=== PATIENT | female | born 2000 | race Caucasian/White ===

== ENCOUNTER 2020-09-10 13:29 | Outpatient (CLI) | payer BC, SELFPAY ==
--- NOTE | 2020-09-10 13:46 | XR_ITS ---
WS: [id number] RIGHT KNEE: 2 VIEW(S) TECHNIQUE: AP and lateral. HISTORY: PAIN IN RIGHT KNEE COMPARISON: None available. No fracture or dislocation. No joint space narrowing or osteophytes. No joint effusion. No soft tissue abnormality. XR/XR knee RT 1-2V [id number] IMPRESSION: Normal RIGHT knee.
== END 2020-09-10 13:30 | disposition home or self-care (01) ==
LOC: RADWPI 13:34
PROVIDERS: PCP Nurse Practitioner; Visit Provider Nurse Practitioner
DX: M25.561 Pain in right knee (principal)
CPT/HCPCS: 73560

== ENCOUNTER → 2021-05-02 14:33 | Outpatient (BNVA) | payer BC, SELFPAY | PROVIDERS: PCP Nurse Practitioner; Visit Provider Nurse Practitioner Family | DX: Z20.822 Contact with and (suspected) exposure to COVID-19 (principal) | CPT/HCPCS: 87635 ==

== ENCOUNTER 2021-11-06 09:41 | Emergency (ER) | payer OTHER, SELFPAY ==
[2021-11-06 09:59] VITALS: BP 116/77; PULSE 72; RESP 18; TEMP 36.6; O2SAT 98; BMI 25.6
--- NOTE | 2021-11-06 10:20 | ED_ITS ---
HPI - General Adult General: Chief complaint: Needlestick/Injury/Exposure Stated complaint: Needle Stick Time Seen by Provider: 11/06/21 09:55 History of Present Illness: Patient is 21-year-old female comes to the ED with an accidental needlestick injury. Injury occurred while in the OR today. Patient has a surge tach and was holding some forceps for surgeon while suturing up patient. One of the sutures poked patient's right hand. She does not know history of OR patient. Denies any symptoms. Associated symptoms: Deny chest pain, dyspnea, headache(s), nausea, rash, palpitations or vomiting Review of Systems Const: Denies: fever(s), chills or fatigue Eyes: Denies: change in vision or eye discomfort ENMT: Denies: throat pain, odynophagia, nasal discharge or nasal congestion Card: Denies: chest pain, palpitations, edema, swelling of feet/ankles, dyspnea on exertion or orthopnea Resp: Denies: dyspnea, productive cough or non-productive cough GI: Denies: abdominal pain, nausea, vomiting, diarrhea, constipation or hematochezia : Denies: flank pain, dysuria or hematuria Musc: Denies: neck pain, back pain or extremity swelling Skin/Breast: Reports: new lesions (Accidental needlestick injury in right hand); Denies: rash Neuro: Denies: headache(s), numbness in extremities or weakness in extremities PFSH ED PFSH: Medical History ASCUS with positive high risk HPV Family History Family/Other Breast cancer paternal aunt Grandfather Colon cancer paternal Mother Diabetes Hypertension Father Hypertension Denies family history of Clotting disorder Hyperlipidemia Anesthesia complication Bleeding disorder Stroke Social History Smoking and tobacco status: never smoked Alcohol intake: current Alcohol intake frequency: holidays/special occasions only Alcohol type: beer, wine and hard liquor Physical Exam Const: COMMON NORMALS: no acute distress, patient oriented x3, healthy appearing and alert GENERAL APPEARANCE: cooperative and comfortable HENMT: COMMON NORMALS: normocephalic HEAD & SCALP: normocephalic MOUTH: Normal oral and palatal mucosa present THROAT: posterior oropharynx normal an d uvula midline Neck/C-Spine: COMMON NORMALS: supple GENERAL: Yes normal visual inspection Resp: COMMON NORMALS: normal respiratory effort, No retractions, No use of accessory muscles and clear to auscultation bilaterally AUSCULTATION: clear to auscultation bilaterally Cardio: COMMON NORMALS: regular rate, regular rhythm, S1 normal heart sound present, S2 normal heart sound present, No gallops present (Cardio), No clicks present (Cardio), No murmurs present (Cardio) and Peripheral pulses 2+ throughout RATE: regular rate RHYTHM: regular rhythm HEART SOUNDS: S1 normal heart sound present and S2 normal heart sound present PERIPHERAL PULSES: Peripheral pulses 2+ throughout GI: COMMON NORMALS: Normal to inspection, nondistended, normoactive bowel sounds present, Soft to palpation, non-tender and no masses PALPATION: Yes Soft to palpation : COMMON NORMALS: Yes no CVA tenderness BLADDER/KIDNEY EXAM: Yes no CVA tenderness Back/Pelvis: COMMON NORMALS: no CVA tenderness Neuro: COMMON NORMALS: patient oriented x3 and moves all extremities SENSORIUM/ORIENTATION: Yes alert Skin: NARRATIVE SKIN EXAM: Small superficial puncture wound to right hand. 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 Needlestick injury labs were performed and patient was stable and discharged back to work. She was told to contact [facility] this afternoon to find out lab results. I told patient to follow-up with her PCP in the next 6 to 8 weeks to have labs rechecked. Patient understood and agreed with plan. Lab Data I reviewed the patient's lab results. : 11/06/21 10:35 11/06/21 10:35 Laboratory Results WBC 6.9 10^3/uL (4.0-10.0) 11/06/21 10:35 RBC 4.71 10^6/uL (4.1-5.3) 11/06/21 10:35 Hgb 13.3 g/dL (11.5-15.3) 11/06/21 10:35 Hct 41.8 % (37.0-47.0) 11/06/21 10:35 MCV 88.7 fl (81-99) 11/06/21 10:35 MCH 28.2 pg (28.0-34.0) 11/06/21 10:35 MCHC 31.8 g/dL (30.0-36.0) 11/06/21 10:35 RDW 12.5 % (12.1-15.1) 11/06/21 10:35 Plt Count 285 10^3/cmm (130-400) 11/06/21 10:35 MPV 13.3 fL (7.4-10.4) H 11/06/21 10:35 Neut % (Auto) 62.8 % 11/06/21 10:35 Lymph % (Auto) 28.7 % 11/06/21 10:35 [place] % (Auto) 6.9 % 11/06/21 10:35 Eos % (Auto) 0.9 % 11/06/21 10:35 Baso % (Auto) 0.4 % 11/06/21 10:35 Neut # (Auto) 4.31 10^3/uL (1.8-7.7) 11/06/21 10:35 Lymph # (Auto) 2.0 10^3/uL (0.8-4.8) 11/06/21 10:35 [place] # (Auto) 0.5 10^3/uL (0.2-0.9) 11/06/21 10:35 Eos # (Auto) 0.1 10^3/uL (0.0-0.8) 11/06/21 10:35 Baso # (Auto) 0.0 10^3/uL (0.0-0.1) 11/06/21 10:35 Nucleated RBC % (auto) 0 % 11/06/21 10:35 Nucleated RBCs # 0.0 /100WBC 11/06/21 10:35 Sodium 139 mmol/L (136-145) 11/06/21 10:35 Potassium 3.9 mmol/L (3.5-5.1) 11/06/21 10:35 Chloride 104 mmol/L (98-107) 11/06/21 10:35 Carbon Dioxide 23 mmol/L (22-29) 11/06/21 10:35 Anion Gap 15.9 (5-19) 11/06/21 10:35 BUN 12 mg/dL (6-20) 11/06/21 10:35 Creatinine 0.6 mg/dL (0.5-0.9) 11/06/21 10:35 GFR Calculation 123.9 mL/min (90-130) 11/06/21 10:35 Glucose 89 mg/dL (65-115) 11/06/21 10:35 Calculated Osmolality 287 mOsm/kg (285-295) 11/06/21 10:35 Calcium 9.6 mg/dL (8.5-10.5) 11/06/21 10:35 Total Bilirubin 0.2 mg/dL (0.15-1.2) 11/06/21 10:35 AST 14 U/L (0-32) 11/06/21 10:35 ALT 14 U/L (0-33) 11/06/21 10:35 Alkaline Phosphatase 56 IU/L (35-105) 11/06/21 10:35 Total Protein 7.4 g/dL (6.6-8.7) 11/06/21 10:35 Albumin 4.3 g/dL (3.5-5.2) 11/06/21 10:35 Globulin 3.1 g/dL (1.3-4.6) 11/06/21 10:35 Hepatitis A IgM Ab Cancelled 11/06/21 10:35 Hep Bs Antigen Cancelled 11/06/21 10:35 Hep Bs Antibody Cancelled 11/06/21 10:35 Hep B Core Total Ab Cancelled 11/06/21 10:35 Hepatitis C Antibody Cancelled 11/06/21 10:35 HIV 1&2 Ab & HIV 1 Ag Non-reactive (Non-Reactiv) 11/06/21 10:35 HIV 1&2 Antibody Non-reactive (Non-Reactiv) 11/06/21 10:35 Discharge Plan Discharge Patient Disposition: Home Clinical Impression: Accidental needlestick injury with exposure to body fluid Condition: Stable Prescriptions: No Action citalopram 10 mg tablet 10 mg PO DAILY 0RF norgestimate-ethinyl estradiol [[id number]] 0.18/0.215/0.25 mg-25 mcg tablet 1 tab PO DAILY 0RF Discharge Orders: Discharge ED (Routine); Ordered 11/06/21 Ordered By: Ahsan García Discharge Diet: Regular Discharge Activity: Resume usual activity Patient Instructions: Needle Stick Injuries (ED) Activity Restrictions/Additional Instructions: Follow-up with primary care physician as directed in the next 6 to 8 weeks and have them recheck CBC, CMP, hepatitis panel and HIV panel. Continue taking all home medications as previously prescribed. Return to the ER or your medical provider if condition worsens. Please read and understand discharge instructions. Thank you for choosing [facility] for your healthcare needs today. Please realize this is an emergency room and that we are providing you with a medical screening exam and this may not be complete and all inclusive of all the testing and or work up that you may need to determine your ailment or severity of your illness. It is very important that you follow up as instructed or that you return to the Emergency Department should you have concerns or if your cond ition changes or worsens in any way. Coding Level of Care Code ED Hand Mixer for Shara Fwamanda Exam Comprehensive
[2021-11-06 10:57] LABS: Basophils % 0.4 %; Eosinophils # 0.1 10^3/uL (0.0-0.8); Eosinophils % 0.9 %; Hematocrit 41.8 % (37.0-47.0); Hemoglobin 13.3 g/dL (11.5-15.3); Lymphocytes % 28.7 %; Mean Corpuscular HGB Conc 31.8 g/dL (30.0-36.0); Mean Corpuscular Hemoglobin 28.2 pg (28.0-34.0); Mean Corpuscular Volume 88.7 fl (81-99); Mean Platelet Volume 13.3 fL (7.4-10.4); Monocytes # 0.5 10^3/uL (0.2-0.9); Monocytes % 6.9 %; Neutrophils # 4.31 10^3/uL (1.8-7.7); Neutrophils % 62.8 %; Nucleated Red Blood Cells % 0 %; Platelet Count 285 10^3/cmm (130-400); Red Blood Count 4.71 10^6/uL (4.1-5.3); Red Cell Distribution Width 12.5 % (12.1-15.1); White Blood Count 6.9 10^3/uL (4.0-10.0)
[2021-11-06 11:39] LABS: Alanine Aminotransferase 14 U/L (0-33); Albumin Level 4.3 g/dL (3.5-5.2); Alkaline Phosphatase 56 IU/L (35-105); Anion Gap 15.9 (5-19); Aspartate Amino Transferase 14 U/L (0-32); Blood Urea Nitrogen 12 mg/dL (6-20); Calcium 9.6 mg/dL (8.5-10.5); Carbon Dioxide 23 mmol/L (22-29); Chloride 104 mmol/L (98-107); Globulin 3.1 g/dL (1.3-4.6); Glomerular Filtration Rate 123.9 mL/min (90-130); Glucose 89 mg/dL (65-115); HIV 1 & 2 Antibody Non-Reactive (Non-Reactiv); HIV 1 & 2 Antigen Non-Reactive (Non-Reactiv); Osmolality Calculated 287 mOsm/kg (285-295); Potassium 3.9 mmol/L (3.5-5.1); Sodium 139 mmol/L (136-145); Total Bilirubin 0.2 mg/dL (0.15-1.2); Total Protein 7.4 g/dL (6.6-8.7)
== END 2021-11-06 11:59 | disposition home or self-care (01) ==
PROVIDERS: Emergency Provider Physician Assistant
DX: S61.431A Puncture wound without foreign body of right hand, initial encounter (principal); Y93.F9 Activity, other caregiving; W46.1XXA Contact with contaminated hypodermic needle, initial encounter; Y92.234 Operating room of hospital as the place of occurrence of the external cause; Y99.0 Civilian activity done for income or pay; Z77.21 Contact with and (suspected) exposure to potentially hazardous body fluids
CPT/HCPCS: 80053; 85025; 87806; 99281

== ENCOUNTER 2022-01-08 13:39 | Emergency (ER) | payer OTHER, SELFPAY ==
[2022-01-08 14:07] VITALS: BP 130/88; PULSE 74; RESP 12; TEMP 37.2; O2SAT 98; BMI 28.5
--- NOTE | 2022-01-08 15:37 | ED_ITS ---
Documented by User: MICHELE Beard 01/14/22 07:02 HPI - Abdominal Pain General: Chief Complaint: Abdominal Pain Stated Complaint: sent by sergei rangel for MRI Time Seen by Provider: 01/08/22 15:36 Source: patient Mode of arrival: ambulatory Limitations: no limitations History of Present Illness: Patient is a nice 21-year-old female presents to ED today with a complaint of right lower abdominal/pelvic pain over the past 5 days or so. Patient states when pain first began it was rather acute in onset which she found odd. She states since that time pain has been fairly constant but states while at work today became significantly worse. She states she is having nausea but has not had any episodes of emesis. She endorses nonbloody diarrhea. She has not been running fevers. She reports no previous abdominal surgeries. No history of ovarian cysts. Pain seems to be worse with palpation and certain movements while is walking. Pain is slightly alleviated by sitting still. LMP within the last week. MD elicited complaint: abdominal pain Pertinent past history: none Onset (ago): day(s) Pain Consistency: constant Location: RLQ Quality: sharp Radiation: none Migration to: no migration Associated Symptoms: Reports diarrhea and nausea; Denies chills, dysuria, fever(s), heartburn, hematemesis, melena and vomiting Related Data: Date of Last Menstrual Period: 01/05/22 Patient : No Review of Systems Const: Denies: fever(s), chills, body aches, fatigue or malaise Card: Denies: chest pain Resp: Denies: dyspnea GI: Reports: abdominal pain, nausea and diarrhea; Denies: vomiting, hematemesis, heartburn, rectal pain or melena : Denies: flank pain, difficulty voiding, dysuria, urinary frequency, urinary urgency, urinary hesitancy, vaginal odor, vaginal bleeding or vaginal discharge Musc: Denies: neck pain, back pain, extremity pain or joint pain Skin/Breast: Denies: rash Neuro: Denies: headache(s), numbness in extremities, weakness in extremities or sensory changes PFSH ED PFSH: Medical History ASCUS with positive high risk HPV Family History Family/Other Breast cancer paternal aunt Grandfather Colon cancer paternal Mother Diabetes Hypertension Father Hypertension Denies family history of Clotting disorder Hyperlipidemia Anesthesia complication Bleeding disorder Stroke Social History Smoking and tobacco status: never smoked Alcohol intake: current Alcohol intake frequency: holidays/special occasions only Alcohol type: beer, wine and hard liquor Female Reproductive History: Date of last menstrual period: 01/05/22 Physical Exam Const: COMMON NORMALS: no acute distress, average body habitus, patient oriented x3, no limitations, healthy appearing, alert and well nourished GENERAL APPEARANCE: cooperative ORIENTATION/CONSCIOUSNESS: Yes awake, Yes oriented to person, Yes oriented to place and Yes oriented to time HENMT: COMMON NORMALS: normocephalic and atraumatic HEAD & SCALP: normal to inspection, normocephalic and atraumatic Resp: COMMON NORMALS: normal respiratory effort and clear to auscultation bilaterally AUSCULTATION: clear to auscultation bilaterally Cardio: COMMON NORMALS: regular rate and regular rhythm RATE: regular rate RHYTHM: regular rhythm GI: COMMON NORMALS: Normal to inspection, nondistended, normoactive bowel sounds present, Soft to palpation, No hepatosplenomegaly present and no masses INSPECTION: Yes normal to inspection AUSCULTATION: Yes normoactive bowel sounds PALPATION: Yes Soft to palpation, Yes Tenderness to palpation present (GI) (RLQ) and Yes No hepatosplenomegaly present OTHER: pt is more so tender to McBurney's point rather than deeper in pelvis; she does have positive specialized testing (psoas, obturator, heel tap) for appendicitis : COMMON NORMALS: Yes no CVA tenderness BLADDER/KIDNEY EXAM: Yes no CVA tenderness Back/Pelvis: COMMON NORMALS: no CVA tenderness Extremity: COMMON NORMALS: normal to inspection GENERAL: Yes normal exam except as noted Neuro: SENAIT COMA SCALE: document GCS findings [place] coma scale eye opening: Spontaneous [place] coma scale verbal response: Orientated [place] coma scale motor response: Obey commands [place] coma scale total score: 15 COMMON NORMALS: patient oriented x3, moves all extremities, no focal motor deficits, no sensory deficits noted and gait normal SENSORIUM/ORIENTATION: Yes alert, Yes oriented to person, Yes oriented to place and Yes oriented to time Skin: COMMON NORMALS: no rashes or lesions noted GENERAL SKIN EXAM: no rashes or lesions noted Course Vital Signs: Vital signs: Vital Signs Temperature 98.9 F 01/08/22 14:07 Pulse Rate 74 01/08/22 14:07 Respiratory Rate 12 01/08/22 14:07 Blood Pressure 130/88 01/08/22 14:07 Pulse Oximetry 98 01/08/22 14:07 MDM - Abdominal Pain Lab Data : 01/08/22 15:23 01/08/22 15:23 Labs/Radiology: Radiology Impressions Abdomen/Pelvis CT 01/08/22 15:46 IMPRESSION: Scattered prominent subcentimeter short axis largely right lower quadrant mesenteric lymph nodes, perhaps reflecting a mesenteric adenitis in the appropriate clinical setting. Laboratory Results WBC 8.6 10^3/uL (4.0-10.0) 01/08/22 15: RBC 5.01 10^6/uL (4.1-5.3) 01/08/22 15:23 Hgb 13.9 g/dL (11.5-15.3) 01/08/22 15:23 Hct 42.3 % (37.0-47.0) 01/08/22 15:23 MCV 84.4 fl (81-99) 01/08/22 15:23 MCH 27.7 pg (28.0-34.0) L 01/08/22 15:23 MCHC 32.9 g/dL (30.0-36.0) 01/08/22 15:23 RDW 13.6 % (12.1-15.1) 01/08/22 15:23 Plt Count 299 10^3/cmm (130-400) 01/08/22 15:23 MPV 13.0 fL (7.4-10.4) H 01/08/22 15:23 Neut % (Auto) 63.4 % 01/08/22 15:23 Lymph % (Auto) 26.3 % 01/08/22 15:23 [place] % (Auto) 8.7 % 01/08/22 15:23 Eos % (Auto) 0.8 % 01/08/22 15:23 Baso % (Auto) 0.6 % 01/08/22 15:23 Neut # (Auto) 5.48 10^3/uL (1.8-7.7) 01/08/22 15:23 Lymph # (Auto) 2.3 10^3/uL (0.8-4.8) 01/08/22 15:23 [place] # (Auto) 0.8 10^3/uL (0.2-0.9) 01/08/22 15:23 Eos # (Auto) 0.1 10^3/uL (0.0-0.8) 01/08/22 15:23 Baso # (Auto) 0.1 10^3/uL (0.0-0.1) 01/08/22 15:23 Nucleated RBC % (auto) 0 % 01/08/22 15: Nucleated RBCs # 0.0 /100WBC 01/08/22 15:23 Sodium 135 mmol/L (136-145) L 01/08/22 15:23 Potassium 3.7 mmol/L (3.5-5.1) 01/08/22 15: Chloride 102 mmol/L (98-107) 01/08/22 15: Carbon Dioxide 24 mmol/L (22-29) 01/08/22 15:23 Anion Gap 12.7 (5-19) 01/08/22 15:23 BUN 15 mg/dL (6-20) 01/08/22 15:23 Creatinine 0.8 mg/dL (0.5-0.9) 01/08/22 15:23 GFR Calculation 88.9 mL/min (90-130) L 01/08/22 15:23 Glucose 79 mg/dL (65-115) 01/08/22 15:23 Calculated Osmolality 280 mOsm/kg (285-295) L 01/08/22 15:23 Calcium 9.1 mg/dL (8.5-10.5) 01/08/22 15:23 Total Bilirubin 0.2 mg/dL (0.15-1.2) 01/08/22 15:23 AST 14 U/L (0-32) 01/08/22 15:23 ALT 14 U/L (0-33) 01/08/22 15:23 Alkaline Phosphatase 65 IU/L (35-105) 01/08/22 15:23 Total Protein 7.9 g/dL (6.6-8.7) 01/08/22 15:23 Albumin 4.6 g/dL (3.5-5.2) 01/08/22 15:23 Globulin 3.3 g/dL (1.3-4.6) 01/08/22 15:23 HCG, Qual Negative (Negative) 01/08/22 15:23 Urine Color Yellow (Yellow) 01/08/22 15:00 Urine Appearance Clear (CLEAR) 01/08/22 15:00 Urine pH 7 (5-7) 01/08/22 15:00 Ur Specific [place] 1.010 (1.005-1.030) 01/08/22 15:00 Urine Protein Neg (Negative) 01/08/22 15:00 Urine Glucose (UA) Norm (Normal) 01/08/22 15:00 Urine Ketones Negative (Negative) 01/08/22 15:00 Urine Blood Neg (Negative) 01/08/22 15:00 Urine Nitrate Negative (Negative) 01/08/22 15:00 Urine Bilirubin Neg (Negative) 01/08/22 15:00 Urine Urobilinogen Norm mg/dL (Negative) 01/08/22 15:00 Ur Leukocyte Esterase 1+ (Negative) H 01/08/22 15:00 Urine RBC 0-4 /hpf (0-2) H 01/08/22 15:00 Urine WBC 5-10 /hpf (0-5) H 01/08/22 15:00 Ur Squamous Epith Cells 0-4 /hpf (0-5) H 01/08/22 15:00 Amorphous Sediment Not Reportable 01/08/22 15:00 Urine Bacteria Trace /hpf (NONE) 01/08/22 15:00 Discharge Plan Discharge Patient Disposition: Home Clinical Impression: Mesenteric adenitis Condition: Stable Prescriptions: No Action No Known Home Medications 0RF Discharge Orders: Discharge ED (Routine); Ordered 01/08/22 Ordered By: Kevin Briseno Discharge Diet: Usual diet Discharge Activity: Increase activity as tolerated Patient Instructions: Mesenteric Adenitis (ED) Activity Restrictions/Additional Instructions: Drink plenty of fluids. Acetaminophen and ibuprofen for pain. Activity as tolerated. Monitor for other symptoms such as high fever, blood in vomit or stool, or inability to keep fluids down. Follow-up with primary care as needed. Return to ER for worsening symptoms or new complaints. Sign Out Sign Out Data: Patient Sign Out occurred on 01/08/22 at 17:09. Patient's care was discussed, and care was transferred from to Kevin Briseno. Coding Level of Care Code ED Conveyor Line Battery Charger for Chg Fwd Exam Comprehensive Documented by User: MICHAEL Chaidez 01/08/22 18:41 HPI - Abdominal Pain General: Chief Complaint: Abdominal Pain Stated Complaint: sent by sergei rangel for MRI Time Seen by Provider: 01/08/22 15:36 PFSH ED 2 PFSH: Medical History ASCUS with positive high risk HPV Family History Family/Other Breast cancer paternal aunt Grandfather Colon cancer paternal Mother Diabetes Hypertension Father Hypertension Denies family history of Clotting disorder Hyperlipidemia Anesthesia complication Bleeding disorder Stroke Social History Smoking and tobacco status: never smoked Alcohol intake: current Alcohol intake frequency: holidays/special occasions only Alcohol type: beer, wine and hard liquor Physical Exam Neuro: SENAIT COMA SCALE: document GCS findings [place] coma scale total score: 15 Course Vital Signs: Vital signs: Vital Signs Temperature 98.9 F 01/08/22 14:07 Pulse Rate 74 01/08/22 14:07 Respiratory Rate 12 01/08/22 14:07 Blood Pressure 130/88 01/08/22 14:07 Pulse Oximetry 98 01/08/22 14:07 MDM - Abdominal Pain Medical Decision Making 21-year-old female comes in today for complaints of right lower quadrant abdominal pain. Patient has had pain on and off for the last 5 days. Patient reports some mild nausea but no vomiting. Patient reports no high fever. On exam abdomen was tender in the right lower quadrant with some mild McBurney's point tenderness. Vital signs were normal. Differential diagnosis includes but not limited to appendicitis, ovarian cyst, UTI. Laboratory values were unremarkable. CT of the abdomen and pelvis indicated mesenteric adenitis. Revi ewed exam with patient with recommendations for treatment and monitoring. Patient reported understanding agreed to plan. Lab Data : 01/08/22 15:23 01/08/22 15:23 Labs/Radiology: Radiology Impressions Abdomen/Pelvis CT 01/08/22 15:46 IMPRESSION: Scattered prominent subcentimeter short axis largely right lower quadrant mesenteric lymph nodes, perhaps reflecting a mesenteric adenitis in the appropriate clinical setting. Laboratory Results WBC 8.6 10^3/uL (4.0-10.0) 01/08/22 15: RBC 5.01 10^6/uL (4.1-5.3) 01/08/22 15:23 Hgb 13.9 g/dL (11.5-15.3) 01/08/22 15: Hct 42.3 % (37.0-47.0) 01/08/22 15: MCV 84.4 fl (81-99) 01/08/22 15: MCH 27.7 pg (28.0-34.0) L 01/08/22 15: MCHC 32.9 g/dL (30.0-36.0) 01/08/22 15: RDW 13.6 % (12.1-15.1) 01/08/22 15: Plt Count 299 10^3/cmm (130-400) 01/08/22 15: MPV 13.0 fL (7.4-10.4) H 01/08/22 15: Neut % (Auto) 63.4 % 01/08/22 15:23 Lymph % (Auto) 26.3 % 01/08/22 15:23 [place] % (Auto) 8.7 % 01/08/22 15:23 Eos % (Auto) 0.8 % 01/08/22 15:23 Baso % (Auto) 0.6 % 01/08/22 15:23 Neut # (Auto) 5.48 10^3/uL (1.8-7.7) 01/08/22 15: Lymph # (Auto) 2.3 10^3/uL (0.8-4.8) 01/08/22 15:23 [place] # (Auto) 0.8 10^3/uL (0.2-0.9) 01/08/22 15:23 Eos # (Auto) 0.1 10^3/uL (0.0-0.8) 01/08/22 15:23 Baso # (Auto) 0.1 10^3/uL (0.0-0.1) 01/08/22 15:23 Nucleated RBC % (auto) 0 % 01/08/22 15: Nucleated RBCs # 0.0 /100WBC 01/08/22 15:23 Sodium 135 mmol/L (136-145) L 01/08/22 15: Potassium 3.7 mmol/L (3.5-5.1) 01/08/22 15: Chloride 102 mmol/L (98-107) 01/08/22 15: Carbon Dioxide 24 mmol/L (22-29) 01/08/22 15: Anion Gap 12.7 (5-19) 01/08/22 15:23 BUN 15 mg/dL (6-20) 01/08/22 15: Creatinine 0.8 mg/dL (0.5-0.9) 01/08/22 15: GFR Calculation 88.9 mL/min (90-130) L 01/08/22 15: Glucose 79 mg/dL (65-115) 01/08/22 15: Calculated Osmolality 280 mOsm/kg (285-295) L 01/08/22 15: Calcium 9.1 mg/dL (8.5-10.5) 01/08/22 15:23 Total Bilirubin 0.2 mg/dL (0.15-1.2) 01/08/22 15: AST 14 U/L (0-32) 01/08/22 15: ALT 14 U/L (0-33) 01/08/22 15:23 Alkaline Phosphatase 65 IU/L (35-105) 01/08/22 15:23 Total Protein 7.9 g/dL (6.6-8.7) 01/08/22 15: Albumin 4.6 g/dL (3.5-5.2) 01/08/22 15: Globulin 3.3 g/dL (1.3-4.6) 01/08/22 15:23 HCG, Qual Negative (Negative) 01/08/22 15:23 Urine Color Yellow (Yellow) 01/08/22 15:00 Urine Appearance Clear (CLEAR) 01/08/22 15:00 Urine pH 7 (5-7) 01/08/22 15:00 Ur Specific [place] 1.010 (1.005-1.030) 01/08/22 15:00 Urine Protein Neg (Negative) 01/08/22 15:00 Urine Glucose (UA) Norm (Normal) 01/08/22 15:00 Urine Ketones Negative (Negative) 01/08/22 15:00 Urine Blood Neg (Negative) 01/08/22 15:00 Urine Nitrate Negative (Negative) 01/08/22 15:00 Urine Bilirubin Neg (Negative) 01/08/22 15:00 Urine Urobilinogen Norm mg/dL (Negative) 01/08/22 15:00 Ur Leukocyte Esterase 1+ (Negative) H 01/08/22 15:00 Urine RBC 0-4 /hpf (0-2) H 01/08/22 15:00 Urine WBC 5-10 /hpf (0-5) H 01/08/22 15:00 Ur Squamous Epith Cells 0-4 /hpf (0-5) H 01/08/22 15:00 Amorphous Sediment Not Reportable 01/08/22 15:00 Urine Bacteria Trace /hpf (NONE) 01/08/22 15:00 Discharge Plan Discharge Patient Disposition: Home Clinical Impression: Mesenteric adenitis Condition: Stable Prescriptions: No Action No Known Home Medications 0RF Discharge Orders: Discharge ED (Routine); Ordered 01/08/22 Ordered By: Kevin Briseno Discharge Diet: Usual diet Discharge Activity: Increase activity as tolerated Patient Instructions: Mesenteric Adenitis (ED) Activity Restrictions/Additional Instructions: Drink plenty of fluids. Acetaminophen and ibuprofen for pain. Activity as tolerated. Monitor for other symptoms such as high fever, blood in vomit or stool, or inability to keep fluids down. Follow-up with primary care as needed. Return to ER for worsening symptoms or new complaints. Sign Out Sign Out Data: Patient Sign Out occurred on 01/08/22 at 17:09. Patient's care was discussed, and care was transferred from to Kevin Briseno. Coding Level of Care Code ED Conveyor Line Battery Charger for Nazg Fwd Exam Comprehensive
[2022-01-08 15:42] LABS: Basophils # 0.1 10^3/uL (0.0-0.1); Basophils % 0.6 %; Eosinophils # 0.1 10^3/uL (0.0-0.8); Eosinophils % 0.8 %; Hematocrit 42.3 % (37.0-47.0); Hemoglobin 13.9 g/dL (11.5-15.3); Lymphocytes # 2.3 10^3/uL (0.8-4.8); Lymphocytes % 26.3 %; Mean Corpuscular HGB Conc 32.9 g/dL (30.0-36.0); Mean Corpuscular Hemoglobin 27.7 pg (28.0-34.0); Mean Corpuscular Volume 84.4 fl (81-99); Monocytes # 0.8 10^3/uL (0.2-0.9); Monocytes % 8.7 %; Neutrophils # 5.48 10^3/uL (1.8-7.7); Neutrophils % 63.4 %; Nucleated Red Blood Cells % 0 %; Platelet Count 299 10^3/cmm (130-400); Red Blood Count 5.01 10^6/uL (4.1-5.3); Red Cell Distribution Width 13.6 % (12.1-15.1); White Blood Count 8.6 10^3/uL (4.0-10.0)
[2022-01-08 15:45] LABS: Add Urine Microscopic? YES; Bilirubin Urine Neg (Negative); Blood Urine Neg (Negative); Glucose Urine UA Norm (Normal); Ketones Urine Negative (Negative); Leukocyte Esterase Urine 1+ (Negative); Nitrate Urine Negative (Negative); Protein Urine Neg (Negative); Urine Appearance Clear (CLEAR); Urine Color Yellow (Yellow); Urobilinogen Urine Norm (Negative); pH Urine 7 (5-7)
[2022-01-08 15:46] LABS: Add Urine Culture? No; Bacteria Urine TRACE /hpf; RBC Urine 0-4 /hpf (0-2); Squamous Epithelial Cell Urine 0-4 /hpf (0-5)
--- NOTE | 2022-01-08 15:46 | CTR_ITS ---
PROCEDURE INFORMATION: Exam: CT Abdomen And Pelvis Without Contrast Exam date and time: 01/08/2022 5:21 PM Age: 21 years old Clinical indication: Abdominal pain; Additional info: R lower abdominal/pelvis pain; Nausea, diarrhea TECHNIQUE: Imaging protocol: Computed tomography of the abdomen and pelvis without contrast. Radiation optimization: All CT scans at this facility use at least one of these dose optimization techniques: automated exposure control; mA and/or kV adjustment per patient size (includes targeted exams where dose is matched to clinical indication); or iterative reconstruction. COMPARISON: CT chest w con* [id number] 08/23/2015 8:25 PM RADIATION DOSE METRICS: Total DLP (mGy-cm): 1157.34 FINDINGS: Liver: Normal. No mass. Gallbladder and bile ducts: Normal. No calcified stones. No ductal dilation. Pancreas: Normal. No ductal dilation. Spleen: Normal. No splenomegaly. Adrenal glands: Normal. No mass. Kidneys and ureters: Normal. No hydronephrosis. Stomach and bowel: Unremarkable. No obstruction. No mucosal thickening. Appendix: No evidence of appendicitis. Intraperitoneal space: Unremarkable. No free air. No significant fluid collection. Vasculature: Unremarkable. No abdominal aortic aneurysm. Lymph nodes: Scattered prominent subcentimeter short axis largely right lower quadrant mesenteric lymph nodes, perhaps reflecting a mesenteric adenitis in the appropriate clinical setting. Urinary bladder: Unremarkable as visualized. Reproductive: Unremarkable as visualized. Bones/joints: Unremarkable. No acute fracture. Soft tissues: Unremarkable. CT/CT abdomen pelvis wo con [id number] IMPRESSION: Scattered prominent subcentimeter short axis largely right lower quadrant mesenteric lymph nodes, perhaps reflecting a mesenteric adenitis in the appropriate clinical setting.
[2022-01-08] MEDS: acetaminophen 500 mg Tablet 1000 MG PO (15:52)
[2022-01-08 16:12] LABS: Alanine Aminotransferase 14 U/L (0-33); Albumin Level 4.6 g/dL (3.5-5.2); Alkaline Phosphatase 65 IU/L (35-105); Anion Gap 12.7 (5-19); Aspartate Amino Transferase 14 U/L (0-32); Blood Urea Nitrogen 15 mg/dL (6-20); Calcium 9.1 mg/dL (8.5-10.5); Carbon Dioxide 24 mmol/L (22-29); Chloride 102 mmol/L (98-107); Globulin 3.3 g/dL (1.3-4.6); Glomerular Filtration Rate 88.9 mL/min (90-130); Glucose 79 mg/dL (65-115); Osmolality Calculated 280 mOsm/kg (285-295); Potassium 3.7 mmol/L (3.5-5.1); Sodium 135 mmol/L (136-145); Total Bilirubin 0.2 mg/dL (0.15-1.2); Total Protein 7.9 g/dL (6.6-8.7)
[2022-01-08 16:15] LABS: HCG, Serum Qual Negative (Negative)
== END 2022-01-08 18:47 | disposition home or self-care (01) ==
PROVIDERS: Physician Assistant; Emergency Provider Nurse Practitioner Family
DX: I88.0 Nonspecific mesenteric lymphadenitis (principal)
CPT/HCPCS: 74176; 80053; 81001; 84703; 85025; 99283

== ENCOUNTER → 2022-04-29 14:30 | Outpatient (BNVA) | payer OTHER, SELFPAY | PROVIDERS: PCP Clinical Nurse Specialist Adult Health; Visit Provider Clinical Nurse Specialist Adult Health | DX: Z00.00 Encounter for general adult medical examination without abnormal findings (principal); L70.0 Acne vulgaris | CPT/HCPCS: 87624 ==

== ENCOUNTER 2022-09-18 07:02 | Outpatient (CLI) | payer OTHER, SELFPAY ==
--- NOTE | 2022-09-18 07:15 | US_ITS ---
WS: [id number] ULTRASOUND SOFT TISSUES RIGHT inguinal canal. HISTORY: right inguinal lymphadenopathy COMPARISON: CT 01/08/2022. TECHNIQUE: 2-D and color Doppler imaging is submitted. Patient directed area of concern to the RIGHT inguinal canal. Ultrasound evaluation demonstrates norm al soft tissues. There are normal appearing lymph nodes. There is no mass. No herniation or peristals ing bowel loops. US/US soft tissue/extremity [id number] IMPRESSION: Negative RIGHT inguinal ultrasound.
== END 2022-09-18 07:03 | disposition home or self-care (01) ==
PROVIDERS: PCP Clinical Nurse Specialist Adult Health; Visit Provider Clinical Nurse Specialist Adult Health
DX: R10.31 Right lower quadrant pain (principal); I88.0 Nonspecific mesenteric lymphadenitis
CPT/HCPCS: 76882